=== PATIENT | male | born 1960 ===

== ENCOUNTER 2018-05-10 09:23 | Day surgery (SDC) | payer MEDICARE ==
[~2018-05-10] VITALS: Ht 165.1 cm; Wt 79.7 kg
[~2018-05-10 09:23] MED LIST: AMIT25 PO; ASCO500 PO; BUPR150ER PO; LIDOCAINE1 EACH; MULTI VITAMIN1 EACH PO; NAPR500EC PO; SILD50TA PO; Vitamin D2000 UNIT PO
[2018-05-10] MEDS ORDERED: TRAM50 PO (09:44)
--- NOTE | 2018-05-10 11:36 | NUR ---
05/10/18 1136 Yudelka Powell A PATIENT TAKEN TO SDU WITHOUT S/S OF DISTRESS OR COMPLAINTS. VSS T/O CASE. PT APPEARPED TO TOLERATE PROCEDURE WELL.
== END 2018-05-10 11:43 | disposition home or self-care (01) ==
LOC: ORSCSDS 09:23
PROVIDERS: Anesthesiology
PROC: 3E0R33Z Introduction of Anti-inflammatory into Spinal Canal, Percutaneous Approach (ICD-10-PCS; principal; 2018-05-10 10:30)
DX: M50.122 Cervical disc disorder at C5-C6 level with radiculopathy (principal); M48.02 Spinal stenosis, cervical region; F32.9 Major depressive disorder, single episode, unspecified; E78.00 Pure hypercholesterolemia, unspecified; Z79.899 Other long term (current) drug therapy
CPT/HCPCS: J1040; J2250; J3010; J7120